=== PATIENT | female | born 1965 | race Caucasian/White ===

== ENCOUNTER 2017-04-05 06:44 | Day surgery (SDC) | payer BC ==
[~2017-04-05] VITALS: Ht 160 cm; Wt 61.4 kg
[2017-04-05] VITALS (8 sets, daily range): BP systolic 128–145; BP diastolic 77–89; PULSE 65–95; RESP 20; TEMP 98–98.2; O2SAT 91–98
[2017-04-05] MEDS ORDERED: IOHEXOL 350 MG/ML 50 ML BTL (for RAD DIAG) OTHER ONE (06:45)
[2017-04-05] MEDS ORDERED: CIPR-9 PO (07:19)
[2017-04-05] MEDS ORDERED: ALEV220T14 PO (07:19)
[2017-04-05] MEDS ORDERED: PERC5TAB12 PO (07:19)
[2017-04-05] MEDS ORDERED: DOCU1CAP66 (07:20)
[2017-04-05 07:38] LABS: AUTOMATED NEUTROPHIL # 4.4 TH/MM3 (1.8-7.7); BASOPHIL % 0.4 % (0.0-2.0); EOSINOPHIL # 0.1 TH/MM3 (0-0.4); EOSINOPHIL % 1.9 % (0.0-4.0); HEMATOCRIT 29.7 % (35.0-46.0); HEMOGLOBIN 9.3 GM/DL (11.6-15.3); LYMPH % 27.2 % (9.0-44.0); LYMPHOCYTE # 1.8 TH/MM3 (1.0-4.8); MEAN CORPUSCULAR HGB CONC 31.4 % (32.0-36.0); MEAN PLATELET VOLUME 6.5 FL (7.0-11.0); MONO % 5.3 % (0.0-8.0); MONOCYTE # 0.4 TH/MM3 (0-0.9); NEUT % 65.2 % (16.0-70.0); PLATELET COUNT 480 TH/MM3 (150-450); RED BLOOD COUNT 4.44 MIL/MM3 (4.00-5.30); RED CELL DISTRIBUTION WIDTH 18.9 % (11.6-17.2); WHITE BLOOD COUNT 6.8 TH/MM3 (4.0-11.0)
[2017-04-05 07:52] LABS: CALCIUM 8.9 MG/DL (8.5-10.1); CREATININE 0.8 MG/DL (0.50-1.00); INTERNATIONAL NORMALIZED RATIO 1.1 RATIO; PROTHROMBIN TIME - PATIENT 10.7 SEC (9.8-11.6)
[2017-04-05] MEDS ORDERED: SODIUM CHLORIDE 0.9% 1000 ML IV SCH (08:00)
[2017-04-05] MEDS ORDERED: LEVOFLOXACIN 500 MG PREMIX 100 ML - nephrostomy tube insertion or exchange IV SCH (08:00)
[2017-04-05] MEDS ORDERED: MIDAZOLAM HCL 2 MG/2 ML VIAL ONE ×2 (09:12→09:26)
--- NOTE | 2017-04-05 09:56 | PD.RAD ---
Post Procedure Progress Note Pre Procedure Diagnosis: (1) Staghorn renal calculus (2) Pyelonephritis Post Procedure Diagnosis: (1) Staghorn renal calculus (2) Pyelonephritis Procedure Date: Apr 05, 2017 Supervising Radiologist: Reyes Warren Estimated blood loss: 2cc Anesthesia: Local, Conscious Sedation Plan of Activity Patient to Unit: ROPU Patient Condition: Fair Additional Comments: large left staghorn calculi PCN placed. Immediate return of purulent material 8F tube coiled within the renal pelvis with some difficulty as the stone fills the entire kidney Full dictated report to follow See PACS Report for procedural detail/treatment Reyes Warren MD Apr 05, 2017 09:56
--- NOTE | 2017-04-05 12:13 | RADRPT ---
EXAM DATE/TIME: 04/05/2017 08:58 [facility] COMPARISON: PERCUTANEOUS ANTEGRADE PYELO,LT, April 05, 2017, 0:00. INDICATIONS : Patient presents with kidney stones and infection in need of nephrostomy tube placement for drainage. MEDICAL HISTORY : Left flank pain Staghorn calculi SURGICAL HISTORY : Tonsillectomy ENCOUNTER: Initial ACUITY: 4 - 6 months PAIN SCORE: 7/10 LOCATION: Left flank FLUORO TIME: 11.2 minutes IMAGE SERIES: 5 SEDATION TIME: 30 minutes CONTRAST: 32 cc Omnipaque (iohexol) 350 MEDICATION(S): 1.) 2.5 mg midazolam (Versed) IV 2.) 125 mcg fentanyl (Sublimaze) IV DEVICE(S): 1.) 8 Azerbaijani 25CM EXPEL PROCEDURE : 1. fluoroscopic guided puncture of the kidney. 2. Antegrade percutaneous pyelogram. 3. Percutaneous nephrostomy placement. 4. Conscious sedation with continuous EKG and oximetry monitoring. The risks, benefits and alternatives to the procedure were explained and verbal and written consent w as obtained. The site was prepped in sterile fashion. Full sterile technique was used, including ca p, mask, sterile gloves and gown and a large sterile sheet. Hand hygiene and 2% chlorhexidine and/or betadine/alcohol prep was utilized per protocol for cutaneous antisepsis. Sterile gel and sterile probe cover were utilized for ultrasound guidance. The skin and subcutaneous tissues were infiltrate d with local anesthetic solution. With ultrasound and fluoroscopic guidance the selected kidney was evaluated. The large staghorn was e asily identifiable under fluoroscopy. The patient has a draining sinus in the right back however, the most readily accessible calyx was somewhat above this level. The sinus tract was injected. This does communicate along the inferior aspect of the kidney. A suitable site was localized. The skin was anesthetize with 10 cc 1% lidocaine. A 22 gauge needle wa s advanced through the skin down to the calyx. There was immediate return of purulent material. A 0.018 wire was advanced through the needle. This was passed down to the renal pelvis. This was exch anged for or Azerbaijani dilator and a 0.035 Glidewire. The Glidewire was advanced down the ureter into th e bladder. The tract was dilated. An 8 Azerbaijani nephrostomy tube was passed over the wire and positioned within th e renal pelvis. There was difficulty with forming the catheter as the entire collecting system and re nal pelvis is filled with staghorn calculus. Conscious sedation was performed with the prescribed dosages and duration as above in the presence of an independent trained radiology nurse to assist in the monitoring of the patient. EKG and oximetry remained stable throughout the procedure. The patient tolerated the procedure well and there were n o complications. The patient was sent to post anesthesia recovery in stable condition. CONCLUSION: 1. Uncomplicated nephrostomy tube placement as above. 2. The calyx was not accessed through the patient's draining sinus tract as the tract is considerably lower than the kidney itself. Reyes Warren MD on April 05, 2017 at 12:06 Board Certified Radiologist. This report was verified electronically.
== END 2017-04-05 14:00 | disposition home or self-care (01) ==
LOC: HROP 06:44 → HRIP 06:49 → HROP 14:00
PROVIDERS: ATTEND Urology
DX: N20.0 Calculus of kidney (principal); N12 Tubulo-interstitial nephritis, not specified as acute or chronic; R10.84 Generalized abdominal pain; Z01.818 Encounter for other preprocedural examination
CPT/HCPCS: 50432; 80048; 85025; 85610; 85730; 99152; 99153; C1729; C1769; J1956; J2250; J3010; J7030; Q9967

== ENCOUNTER 2017-04-19 09:53 | Emergency (ER) | payer BC ==
[~2017-04-19] VITALS: Ht 160 cm; Wt 61.5 kg
[~2017-04-19 09:53] MED LIST: ALEV220T14 PO; CIPR-9 PO; DOCU1CAP66; PERC5TAB12 PO
[2017-04-19 10:40] VITALS: BP 154/56; PULSE 100; RESP 20; TEMP 98.4; O2SAT 100
--- NOTE | 2017-04-19 11:35 | PD ---
HPI Chief Complaint: Pain: Acute or Chronic Time Seen by Provider: 11:06 Travel History International Travel<30 days: No Contact w/Intl Traveler<30days: No Traveled to known affect area: No History of Present Illness HPI 51 YO F presents to the ED for evaluation of 12/01 throbbing right leg pain. Onset after undergoing left PCN placement on 04/05/[address] Warren. Patient states that the pain is "in the whole leg." She denies numbness, tingling, weakness, limitations to ROM of the extremity. She has been ambulatory without a limp. She denies CP, SOB, palpitations. She states that she has been taking Percocet that was prescribed post operatively. Last dose ~4am today. She is a non-smoker. She denies history of blood clots. She states that she is almost out of Percocet and is worried about the pain in her back as well. She has follow-up with Dr. Sullivan on May 06. She drove herself to the hospital today. PFSH Past Medical History Cancer: No Diabetes: No Endocrine: No Gastrointestinal Disorders: Yes (constipation) Hepatitis: No Immune Disorder: No Kidney Stones: Yes Medical other: No Psychiatric: No Reproductive: No Immunizations Current: No Thyroid Disease: No Tetanus Vaccination: > 5 Years ?: Not Past Surgical History AICD: No Joint Replacement: No Pacemaker: No Tonsillectomy: Yes Social History Alcohol Use: No Tobacco Use: No Substance Use: No Allergies-Medications (Allergen,Severity, Reaction): Coded Allergies: No Known Allergies (Unverified , 04/19/17) Reported Meds & Prescriptions Reported Meds & Active Scripts Active Reported Stool Softener (Docusate Sodium) 100 Mg Cap Aleve Arthritis (Naproxen Sodium) 220 Mg Tab 220 Mg PO BID Percocet (Oxycodone-Acetaminophen) 5-325 mg Tab 1-2 Tab PO Q6H PRN Cipro (Ciprofloxacin HCl) 500 Mg Tab 500 Mg PO BID Review of Systems Except as stated in HPI: all other systems reviewed are Neg Physical Exam Narrative GENERAL: Well-nourished, well-developed white female in no acute distress. SKIN: Focused skin assessment warm/dry. Percutaneous nephrostomy tube in the left back, healing well without signs of infection. Clear yellow urine in the flexion bag. HEAD: Normocephalic. EYES: No scleral icterus. No injection or drainage. NECK: Supple, trachea midline. No JVD or lymphadenopathy. CARDIOVASCULAR: Regular rate and rhythm without murmurs, gallops, or rubs. RESPIRATORY: Breath sounds clear and equal bilaterally. No accessory muscle use. GASTROINTESTINAL: Abdomen soft, non-tender, nondistended. Active bowel sounds. MUSCULOSKELETAL: No cyanosis, or edema. FOCUSED RIGHT LOWER EXTREMITY EXAM: 2+ DP pulse. Mildly edematous as compared to the contralateral leg. Positive Homans sign. Positive popliteal tenderness. Positive tenderness to palpation of the posterior thigh. No ropy induration noted. Patient retains full, active, painless ROM of the hip, knee and ankle joints. Neurovascularly intact to light touch distally. Cap refill less than 2 seconds. BACK: Nontender without obvious deformity. No CVA tenderness. Data Data Last Documented VS Vital Signs Date Time Temp Pulse Resp B/P (MAP) Pulse Ox O2 Delivery O2 Flow Rate FiO2 04/19/17 10:40 98.4 100 20 154/56 (88) 100 Orders Orders Us Leg Venous Doppler (04/19/17 11:06) [facility] Medical Decision Making Medical Screen Exam Complete: Yes Emergency Medical Condition: Yes Differential Diagnosis DVT versus musculoskeletal pain versus medication refill versus other Narrative Course 51 YO F presents to the ED for evaluation of 1010 throbbing right leg pain. Onset after undergoing left PCN placement on 04/05/[address] Warren. Patient states that the pain is "in the whole leg." She has been ambulatory without a limp. She drove herself to the ED. She states that she has been taking Percocet that was prescribed post operatively. Last dose ~4am today. She is a non- smoker. She denies history of blood clots. She states that she is almost out of Percocet and is worried about the pain in her back as well. She has follow-up with Dr. Sullivan on May 06. Vitals reviewed. On exam the leg is slightly larger as compared to the contralateral leg. Positive Homans sign, tender to touch of the entire extremity without limited ROM. Palpable distal pulses. Sensation intact to light touch distally. Ultrasound reveals no evidence of DVT. On recheck the patient is lying on her right side in the stretcher. She states that she has follow-up with Dr. Sullivan on the . I'm unsure of the source of her pain, most likely musculoskeletal pain, possibly anxiety about running out of medications. In any case she is safe for discharge and follow- up with Dr. Bush or Dr. Sullivan. Diagnosis Primary Impression: Musculoskeletal pain of right lower extremity Referrals: Primary Care Physician Patient Instructions: General Instructions, Musculoskeletal Pain (ED) Additional Instructions: Rest, ice, elevate the extremity. Apply ice no longer than 10-15 minutes per hour a few times a day. 600 mg ibuprofen up to 3 times a day as needed for pain. Return to normal, gentle activity as tolerated. No running, jumping activities for the next few weeks. Follow up with Dr. Bush and Dr. Sullivan as planned. Return to the ED for any urgent or emergent medical condition. Disposition: 01 DISCHARGE HOME Condition: Stable Avani Brewer Apr 19, 2017 11:35
--- NOTE | 2017-04-19 11:59 | RADRPT ---
EXAM DATE/TIME: 04/19/2017 11:18 [facility] COMPARISON: No previous studies available for comparison. INDICATIONS : Right leg pain. MEDICAL HISTORY : Kidney stone. SURGICAL HISTORY : Tonsillectomy. ENCOUNTER: Initial ACUITY: 3 days PAIN SCORE: 7/10 LOCATION: Right leg. TECHNIQUE: Venous ultrasound of the leg was performed from the inguinal ligament to the proximal calf. Real-lan e, color Doppler and spectral tracing, compression and augmentation techniques were used. FINDINGS: There is normal compressibility of the deep venous system from the inguinal region to the proximal ca lf. No echogenic clot is seen in the lumen of the common femoral, femoral, popliteal, and posterior tibial veins. There is a normal response of the venous system to proximal and distal augmentation an d respiration. CONCLUSION: No DVT is identified within the right lower extremity. Ricardo French MD on April 19, 2017 at 11:57 Board Certified Radiologist. This report was verified electronically.
[2017-04-19 12:40] VITALS: BP 183/88
== END 2017-04-19 12:50 | disposition home or self-care (01) ==
LOC: NEPC 09:53
DX: M79.604 Pain in right leg (principal)
CPT/HCPCS: 93971; 99284

== ENCOUNTER 2017-05-06 06:46 | Inpatient (IN) | payer BC, OTHER ==
[~2017-05-06] VITALS: Ht 160 cm; Wt 61.9 kg
[~2017-05-06 06:46] MED LIST changes: -CIPR-9 PO
[2017-05-06] MEDS ORDERED: METOPROLOL TARTRATE 25 MG TAB PO PRN (07:30)
[2017-05-06] MEDS ORDERED: CHLORHEXIDINE GLUCONATE 2 % 1 PACK (2 CLOTHS) TOPICAL PRN (07:30)
[2017-05-06] MEDS ORDERED: LACTATED RINGER'S 1000 ML IV PRN (07:30)
[2017-05-06] MEDS ORDERED: POVIDONE IODINE 5% (ANTISEPSIS KIT) 4 APPLICATIONS EACH NARE PRN (07:30)
[2017-05-06] MEDS ORDERED: SODIUM CHLORID 0.9% 500 ML IV PRN (07:30)
[2017-05-06] MEDS ORDERED: GENTAMICIN INJ 300 MG in SODIUM CHLORIDE 0.9% INJ 100 ML IV SCH (08:00)
[2017-05-06] MEDS ORDERED: IOHEXOL 350 MG/ML 100 ML BTL (for RAD DIAG) IVCONTRAST ONE (10:50)
[2017-05-06] MEDS ORDERED: SODIUM CHLORIDE 0.9% FLUSH 10 ML FLUSH IV FLUSH PRN (11:15)
[2017-05-06] MEDS ORDERED: HYDROmorphone HCL PF 2 MG/ML VIAL IV PUSH PRN ×2 (11:15)
[2017-05-06] MEDS ORDERED: ONDANSETRON HCL 4 MG/2 ML VIAL IV PUSH PRN (11:15)
[2017-05-06] MEDS ORDERED: Post-op Orders (for Pharmacy) XX ONE (11:15)
[2017-05-06] MEDS ORDERED: oxyCODONE/ACETAMINOPHEN 5 MG/325 MG TAB PO PRN (11:15)
[2017-05-06] MEDS ORDERED: *MEPERIDINE 25 MG INJ VIAL PERIprocedural Use ONLY ONE (11:29)
[2017-05-06] MEDS ORDERED: *morphine SULFATE 4 MG/ML PERIprocedure ONLY ONE ×2 (11:29→12:02)
[2017-05-06] MEDS: SODIUM CHLOR 0.9% 1000 ML INJ 1,000 ML IV SCH ×2 (11:30→21:03)
[2017-05-06] MEDS ORDERED: ROCURONIUM INJ 50 MG/5 ML SYRINGE IV PUSH ONE (12:00)
[2017-05-06] MEDS ORDERED: GENTAMICIN INJ 100 MG in SODIUM CHLORIDE 0.9% INJ 100 ML IV SCH (12:00)
[2017-05-06] MEDS ORDERED: ONDANSETRON HCL 4 MG/2 ML VIAL IV ONE (12:00)
[2017-05-06] MEDS ORDERED: NEOSTIGMINE 5 MG/5 ML SYRINGE IV PUSH ONE (12:00)
[2017-05-06] MEDS ORDERED: PROPOFOL 200 MG/20 ML AMP IV ONE (12:00)
[2017-05-06] MEDS ORDERED: DEXAMETHASONE SOD PHOS 4 MG/ML VIAL IV ONE (12:00)
[2017-05-06] MEDS ORDERED: LIDOCAINE HCL 1% PF 5 ML SYRINGE OTHER ONE (12:00)
[2017-05-06] MEDS ORDERED: GLYCOPYRROLATE 1 MG/5 ML SYRINGE IV PUSH ONE (12:00)
--- NOTE | 2017-05-06 12:03 | MP ---
cc: Mckay Sullivan MD DATE OF OPERATION: 05/06/2017 PREOPERATIVE DIAGNOSIS: Nephrolithiasis. POSTOPERATIVE DIAGNOSIS: Nephrolithiasis. SURGEON: Mckay Sullivan MD PROCEDURE PERFORMED: Left percutaneous nephrolithotripsy. PERTINENT FINDINGS: 1. Large stone burden noted in the left kidney encompassing upper, mid and lower poles with a complete staghorn calculus over 6 cm in total size. 2. Adequate fragmentation of the mid and lower pole stones. The upper pole stones were difficult to reach and unable to be completely fragmented. 3. Placement of a 6 x 24 double J ureteral stent at the end of the procedure. 4. Investigation of the fistulous tract identified connection with the lower pole ernie. Of note, this lower pole ernie had a very tight infundibulum, which was opened up during the procedure with significant amount of purulent material expressed and removed with all stones in this lower pole segment to be removed. 5. There was purulent material noted in several portions of the kidney where stone was identified and removed. HISTORY OF PRESENT ILLNESS: Hannah Troy is a 51-year-old female who was found to have a large left staghorn calculus. She has a draining sinus tract just inferior to the left kidney. A percutaneous nephrostomy tube was placed, which also investigated this draining tract, which revealed a small connection between the lower pole kidney, which is filled with stones. Her stone burden involved the upper, mid and lower pole stones with complete staghorn, over 6 cm of stones overall. Patient now presents for definitive treatment with PCNL on the left. PROCEDURE IN DETAIL: After proper informed consent was obtained, the patient was brought to the operating room and laid supine on the table. Bilateral lower extremity SCDs were then placed. Patient was then placed under general anesthesia. The patient then had a 20 Italian Mcbride catheter inserted. The patient was then placed in the prone position, ensuring all pressure points were padded properly and comfortable setting. At this point, the patient was prepped and draped in standard surgical fashion after proper time was completed. The left nephrostomy tube was identified. Then contrast was administered, which identified good placement of the nephrostomy tube. A Sensor wire was passed through the tube and advanced into the ureter down into the bladder. At this point, the nephrostomy tube was removed and incision was made in the skin about 1 fingerbreadth wide. At this point, dual-lumen catheter was inserted, and a super stiff wire was inserted along the lumen. The Sensor wire was then removed, and a second super stiff wire was placed as a safety. At this point, the dual lumen was removed, and the balloon catheter was then inserted to dilate the tract to 30 Italian. The balloon was inserted and dilated adequate, at which point, the sheath was passed over the balloon into the left kidney with proper access. At this point, the balloon was taken down, and the nephroscope was inserted through the sheath, and upon entering the kidney, visualization of the large renal pelvis stone was identified. Using the CyberWand, the stone was fragmented into multiple pieces and removed via ultrasonic lithotripsy and suctioned. After removal of all stones in the renal pelvis, investigation of the upper pole stones was attempted. This proved to be very difficult. There was some purulent material expressed from both stones. There was access to an upper pole ernie and all these stones were removed; however, the superior most upper pole ernie was unable to be reached. Following this, attention was then turned to the lower pole stone. A very tight infundibulum was identified and this was dilated passively with the nephroscope and the CyberWand. Upon dilation, significant amount of purulent material was expressed from this lower pole ernie. After all purulence was removed, the scope was advanced in the lower pole ernie with significant stone burden identified, and these were all removed using the CyberWand. After adequate fragmentation and removal of all stones, the kidney was investigated with a flexible cystoscope. No other obvious stone burden was identified. Fluoroscopy did note there were some stones remaining in the upper pole. No other stones in the renal pelvis or lower pole. At this point, given the fistulous tract connection of this lower pole ernie, it was decided to leave a stent in place. A 6 x 24 double ureteral stent was then successfully placed in antegrade approach with good curl in the renal pelvis as well as in the bladder. At this point, a 20 Italian Councill catheter was passed into the kidney, and the balloon was inflated to about 3 or 4 mL. Contrast was then administered, which did not identify any obvious extravasation; however, there was a fistulous tract noted in the lower pole. At this point, this tract was identified in the skin level and injection of this location was completed, which identified this very thin fistulous tract to the lower pole ernie of the kidney. At this point, the nephrostomy tube was secured to the skin with a stitch. Dressings were applied. The patient was then returned to the supine position, awoke from anesthesia, and taken to the PACU in a good and stable condition. The patient tolerated the procedure well and with no complications. DISPOSITION: The patient will be admitted for overnight observation. We will obtain a CT scan to identify any further stone burden. Plan on removing nephrostomy tube if the patient is doing well tomorrow and leaving the indwelling ureteral stent in place with plans to remove it in the future. There is hope with adequate drainage of this kidney and removing all these stones that this fistulous tract will eventually close on its own. MD EFRAIN Guillen/MOLLY , 11:20 AM , 12:01 PM LYLE
--- NOTE | 2017-05-06 12:25 | RADRPT ---
EXAM DATE/TIME: 05/06/2017 09:46 [facility] COMPARISON: NEPHROSTOMY, LEFT, April 05, 2017, 8:58. INDICATIONS : Left side percutaneous nephro lithotripsy. MEDICAL HISTORY : Kidney stones on the left side. SURGICAL HISTORY : Tonsillectomy. ENCOUNTER: Initial ACUITY: 1 day PAIN SCORE: Non-responsive. LOCATION: Left flank FINDINGS: Multiple fluoroscopic intraprocedural images are provided. Images demonstrate guidewires extending to the bladder with lithotripsy followed by placement of ureteral stent. Contrast does extend through p atient's known lower calyceal draining sinus tract. CONCLUSION: 1. Intraprocedural fluoroscopy images of left sided percutaneous nephrolithotripsy, as above. Chiki Kaur MD on May 06, 2017 at 12:20 Board Certified Radiologist. This report was verified electronically.
--- NOTE | 2017-05-06 14:07 | EKG ---
Date Performed: 05/06/2017 Time Performed: 08:24:43 PTAGE: 51 years EKG: Sinus rhythm NORMAL ECG Since the PREVIOUS TRACING , no significant change noted PREVIOUS TRACIN01/08/1994 04.10 DOCTOR: Shelly Arias Interpretating Date/Time 05/06/2017 13:57:41
[2017-05-06 14:57] VITALS: PULSE 72
[2017-05-06 16:00] VITALS: BP 106/60; PULSE 99; RESP 19; TEMP 97.7; O2SAT 99
[2017-05-06 16:09] VITALS: PULSE 72
[2017-05-06 18:16] VITALS: PULSE 72
[2017-05-06] MEDS: oxyCODONE/ACETAMINOPHEN 5 MG/325 MG TAB PO PRN (18:36)
[2017-05-06 20:00] VITALS: BP 107/56; PULSE 120; RESP 18; TEMP 99.9; O2SAT 97
[2017-05-06] MEDS: SODIUM CHLORIDE 0.9% FLUSH 10 ML FLUSH IV FLUSH SCH (20:56)
[2017-05-07] MEDS: oxyCODONE/ACETAMINOPHEN 5 MG/325 MG TAB PO PRN ×6 (00:02→22:49)
[2017-05-07 06:14] LABS: HEMATOCRIT 25.1 % (35.0-46.0); HEMOGLOBIN 8.3 GM/DL (11.6-15.3); MEAN CELL VOLUME 69.7 FL (80.0-100.0); MEAN CORPUSCULAR HEMOGLOBIN 22.9 PG (27.0-34.0); MEAN CORPUSCULAR HGB CONC 32.9 % (32.0-36.0); MEAN PLATELET VOLUME 7.1 FL (7.0-11.0); PLATELET COUNT 280 TH/MM3 (150-450); RED CELL DISTRIBUTION WIDTH 21.9 % (11.6-17.2); WHITE BLOOD COUNT 5.2 TH/MM3 (4.0-11.0)
[2017-05-07 06:40] LABS: BICARBONATE 27.2 MEQ/L (21.0-32.0); CALCIUM 8.3 MG/DL (8.5-10.1); CREATININE 0.93 MG/DL (0.50-1.00)
[2017-05-07 08:00] VITALS: BP 136/69; PULSE 106; RESP 19; TEMP 100.5; O2SAT 98
[2017-05-07] MEDS: SODIUM CHLOR 0.9% 1000 ML INJ 1,000 ML IV SCH ×2 (08:03→17:06)
[2017-05-07] MEDS: SODIUM CHLORIDE 0.9% FLUSH 10 ML FLUSH IV FLUSH SCH ×2 (08:04→19:56)
[2017-05-07] MEDS ORDERED: GENTAMICIN INJ 100 MG in SODIUM CHLORIDE 0.9% INJ 100 ML IV SCH (10:00)
--- NOTE | 2017-05-07 10:28 | RADRPT ---
EXAM DATE/TIME: 05/07/2017 09:57 [facility] COMPARISON: No previous studies available for comparison. INDICATIONS : Abdominal pain. ORAL CONTRAST: No oral contrast ingested. RADIATION DOSE: 6.88 CTDIvol (mGy) MEDICAL HISTORY : Renal calculi. SURGICAL HISTORY : Ureteral stent ENCOUNTER: Initial ACUITY: 1 day PAIN SCALE: 5/10 LOCATION: Bilateral lower quadrant TECHNIQUE: Volumetric scanning of the abdomen and pelvis was performed. Using automated exposure control and ad justment of the mA and/or kV according to patient size, radiation dose was kept as low as reasonably achievable to obtain optimal diagnostic quality images. DICOM format image data is available electro nically for review and comparison. FINDINGS: Lung bases demonstrate subsegmental basilar dependent airspace, probably atelectasis. No acute findings in the liver, spleen, adrenals or pancreas. There is a left sided nephrostomy tube ending in the left renal pelvis is a left-sided ureteral stent extending into the bladder. There is air in the left renal collecting system and a partial staghorn calculus occupying the upper pole of the left kidney. There are several small nonobstructing calculi in the lower pole of the left kidney ranging in size from 1-3 mm. No right-sided renal calculi identified. Numerous calcified gallstones in the gallbladder without significant ductal dilatation. There is moderate constipation. Mcbride catheter present in decompressed bladder. No adenopathy. CONCLUSION: 1. Left-sided nephrostomy tube and left ureteral stent. Air in left renal collecting system. There is left perinephric stranding. Partial staghorn calculus upper pole left kidney and smaller nonobstruct ing calculi lower pole left kidney. Minimal dilatation of the left renal collecting system. Numerous calcified gallstones without ductal dilatation. Moderate constipation. Subsegmental airspace disease at the lung bases. Hola Hinojosa MD on May 07, 2017 at 10:21 Board Certified Radiologist. This report was verified electronically.
[2017-05-07 12:00] VITALS: BP_SYST 103; BP_SYST 99; BP_DIAS 55; PULSE 105; PULSE 68; RESP 19; RESP 20; TEMP 98.7; O2SAT 96; O2SAT 99
--- NOTE | 2017-05-07 15:07 | HHI.PR ---
Subjective Patient symptoms today 51 y.o F POD # 1 s/p left PCNL, has Nephrostomy and left stent. NAD, spiked fever at AM 100.5, now its better but still low grade 99.0. no N/V, still c/o left flank pain, meds are helping On CT scan Stent and PCN on a left are in good position, she still has LUP stones. Labs are stable Objective Vital Signs Vital Signs Date Time Temp Pulse Resp B/P (MAP) Pulse Ox O2 Delivery O2 Flow Rate FiO2 05/07/17 12:00 98.7 105 19 99/55 (70) 99 05/07/17 09:03 16 05/07/17 08:00 100.5 106 19 136/69 (91) 98 05/06/17 20:00 99.9 120 18 107/56 (73) 97 05/06/17 18:16 72 05/06/17 16:09 72 05/06/17 16:00 97.7 99 19 106/60 (75) 99 Intake & Output 05/07/17 05/07/17 07:00 19:00 Intake Total 1720 ml 120 ml Output Total 1380 ml Balance 340 ml 120 ml Intake Oral 120 ml IV Total 1720 ml Output Urine Total 1350 ml Drainage Total 30 ml Result Diagram: 05/07/17 0530 05/07/17 0530 Imaging Last 24 hours Impressions Abdomen/Pelvis CT 05/07/17 0800 Signed Impressions: Service Date/Time: Sunday, May 07, 2017 09:57 - CONCLUSION: 1. Left-sided nephrostomy tube and left ureteral stent. Air in left renal collecting system. There is left perinephric stranding. Partial staghorn calculus upper pole left kidney and smaller nonobstructing calculi lower pole left kidney. Minimal dilatation of the left renal collecting system. Numerous calcified gallstones without ductal dilatation. Moderate constipation. Subsegmental airspace disease at the lung bases. Hola Hinojosa MD Objective Remarks NAD RRR Clear breath sounds Lt PCN is in place, urine is red, 100cc in the bag Medications and IVs Current Medications Medications (Trade) Dose Ordered Sig/Miguel Route Start Time Stop Time Status Last Admin Gentamicin Sulfate 300 mg/ Sodium Chloride 107.5 ml @ 200 mls/hr SERVICE DESK MANAGER IV 05/06/17 08:00 05/09/17 07:59 05/06/17 09:48 Lactated Ringer's 1,000 ml @ 30 mls/hr Q24H PRN IV 05/06/17 07:30 05/09/17 07:29 05/06/17 07:50 Sodium Chloride 500 ml @ 30 mls/hr [id number] PRN IV 05/06/17 07:30 05/09/17 07:29 (Lopressor) 25 mg SERVICE DESK MANAGER PRN PO 05/06/17 07:30 05/09/17 07:29 (Betadine 5% Antisepsis Kit) 1 applic SERVICE DESK MANAGER PRN EACH NARE 05/06/17 07:30 05/09/17 07:29 05/06/17 07:51 (Chlorhexidine 2% Cloth) 3 pack SERVICE DESK MANAGER PRN TOPICAL 05/06/17 07:30 05/09/17 07:29 05/06/17 07:30 Sodium Chloride 1,000 ml @ 100 mls/hr Q10H IV 05/06/17 11:06 05/07/17 08:03 (NS Flush) 2 ml UNSCH PRN IV FLUSH 05/06/17 11:15 (NS Flush) 2 ml BID IV FLUSH 05/06/17 21:00 05/07/17 08:04 (Percocet 5-325 Mg) 1 tab Q4H PRN PO 05/06/17 11:15 (Percocet 5-325 Mg) 2 tab Q4H PRN PO 05/06/17 11:15 05/07/17 13:08 (Dilaudid Pf Inj) 1 mg Q2H PRN IV PUSH 05/06/17 11:15 (Dilaudid Pf Inj) 2 mg Q2H PRN IV PUSH 05/06/17 11:15 (Zofran Inj) 4 mg Q6H PRN IV PUSH 05/06/17 11:15 Assessment and Plan Assessment and Plan Continue observation Labs at AM Ambulation and regular diet Use IS Lt PCN removed, dressing applied Change dressing prn D/c mariee at AM tomorrow If stable overnight will be d/c tomorrow Chava Schwarz May 07, 2017 15:07
[2017-05-07 16:00] VITALS: BP 118/65; PULSE 97; RESP 20; TEMP 97; O2SAT 98
[2017-05-07] MEDS: DOCUSATE SODIUM 100 MG CAP PO SCH (17:09)
[2017-05-07 20:00] VITALS: BP 128/63; PULSE 103; RESP 21; TEMP 98.9; O2SAT 97
[2017-05-08 00:35] VITALS: BP 107/57; PULSE 109; RESP 21; TEMP 99.9; O2SAT 95
[2017-05-08] MEDS: SODIUM CHLOR 0.9% 1000 ML INJ 1,000 ML IV SCH (03:06)
[2017-05-08] MEDS: oxyCODONE/ACETAMINOPHEN 5 MG/325 MG TAB PO PRN ×2 (04:42→11:22)
[2017-05-08 06:24] LABS: AUTOMATED NEUTROPHIL # 3.2 TH/MM3 (1.8-7.7); BASOPHIL % 0.4 % (0.0-2.0); EOSINOPHIL # 0.1 TH/MM3 (0-0.4); EOSINOPHIL % 1.9 % (0.0-4.0); HEMATOCRIT 26.1 % (35.0-46.0); HEMOGLOBIN 8.3 GM/DL (11.6-15.3); LYMPH % 28.5 % (9.0-44.0); LYMPHOCYTE # 1.4 TH/MM3 (1.0-4.8); MEAN CELL VOLUME 70.9 FL (80.0-100.0); MEAN CORPUSCULAR HEMOGLOBIN 22.7 PG (27.0-34.0); MEAN CORPUSCULAR HGB CONC 31.9 % (32.0-36.0); MEAN PLATELET VOLUME 7.6 FL (7.0-11.0); MONO % 6.5 % (0.0-8.0); MONOCYTE # 0.3 TH/MM3 (0-0.9); NEUT % 62.7 % (16.0-70.0); PLATELET COUNT 264 TH/MM3 (150-450); RED BLOOD COUNT 3.68 MIL/MM3 (4.00-5.30); RED CELL DISTRIBUTION WIDTH 22.4 % (11.6-17.2)
[2017-05-08 06:41] LABS: BICARBONATE 28.3 MEQ/L (21.0-32.0); CALCIUM 8.4 MG/DL (8.5-10.1); CREATININE 0.75 MG/DL (0.50-1.00)
[2017-05-08 08:00] VITALS: BP 109/56; PULSE 106; RESP 17; TEMP 98.9; O2SAT 99
[2017-05-08] MEDS: SODIUM CHLORIDE 0.9% FLUSH 10 ML FLUSH IV FLUSH SCH (08:29)
[2017-05-08] MEDS: DOCUSATE SODIUM 100 MG CAP PO SCH (08:30)
[2017-05-08] MEDS ORDERED: CIPR-9 PO (11:22)
[2017-05-08] MEDS ORDERED: PERC5TAB12 PO (11:22)
--- NOTE | 2017-05-08 11:26 | HHI.DS ---
Discharge Summary Admission Date May 06, 2017 at 11:37 Discharge Date: May 08, 2017 Admitting Diagnosis Nephrolithiasis (1) Staghorn renal calculus Diagnosis: Principal ICD Codes: N20.0 - Calculus of kidney Procedures Left PCNL CBC/BMP: 05/08/17 0400 05/08/17 0400 Significant Findings Laboratory Tests Test 05/07/17 05:30 05/08/17 04:00 Red Blood Count 3.60 MIL/MM3 (4.00-5.30) 3.68 MIL/MM3 (4.00-5.30) Hemoglobin 8.3 GM/DL (11.6-15.3) 8.3 GM/DL (11.6-15.3) Hematocrit 25.1 % (35.0-46.0) 26.1 % (35.0-46.0) Mean Corpuscular Volume 69.7 FL (80.0-100.0) 70.9 FL (80.0-100.0) Mean Corpuscular Hemoglobin 22.9 PG (27.0-34.0) 22.7 PG (27.0-34.0) Red Cell Distribution Width 21.9 % (11.6-17.2) 22.4 % (11.6-17.2) Random Glucose 136 MG/DL (74-106) 107 MG/DL (74-106) Calcium Level 8.3 MG/DL (8.5-10.1) 8.4 MG/DL (8.5-10.1) Estimat Glomerular Filtration Rate 63 ML/MIN (>89) 81 ML/MIN (>89) Mean Corpuscular Hemoglobin Concent 31.9 % (32.0-36.0) Hospital Course Patient underwent successful left PCNL for large left staghorn calculus on 05/06. Patient did well postoperatively. CT scan identified stones remaining in the upper pole calyx with clearance of all other stones. Therefore her nephrostomy tube was removed. She does have an indwelling left ureteral stent in place. She was tolerating diet with good pain control. Discharged in good and stable condition on 05/08/17. Follow-up with Urology in clinic in 1-2 weeks Pt Condition on Discharge: Good Discharge Disposition: Discharge Home Discharge Instructions DIET: Follow Instructions for: As Tolerated, No Restrictions Activities you can perform: Regular-No Restrictions, Shower Only-No Bath New Medications: Ciprofloxacin (Cipro) 500 Mg Tab 500 MG PO BID for Infection for 5 Days, #10 TAB 0 Refills Changed Medications: Oxycodone-Acetaminophen (Percocet) 5-325 mg Tab 1-2 TAB PO Q6H PRN for PAIN for 14 Days, #60 TAB 0 Refills (Changed from: 1 TAB) Continued Medications: Docusate Sodium (Stool Softener) 100 Mg Cap CAP Naproxen Sodium (Aleve Arthritis) 220 Mg Tab 220 MG PO BID, TAB Mcaky Sullivan MD May 08, 2017 11:26
== END 2017-05-08 12:25 | disposition home or self-care (01) | DRG 661 ==
LOC: HSDC 06:46 → HSDI 11:37 → N07A 13:45
PROVIDERS: ADMIT Urology; ATTEND Urology
PROC: 0T773DZ Dilation of Left Ureter with Intraluminal Device, Percutaneous Approach (ICD-10-PCS; 2017-05-06)
PROC: 0TF43ZZ Fragmentation in Left Kidney Pelvis, Percutaneous Approach (ICD-10-PCS; principal; 2017-05-06 08:51)
DX: N20.0 Calculus of kidney (principal); N28.89 Other specified disorders of kidney and ureter
CPT/HCPCS: 74018; 74176; 76000; 80048; 82365; 82370; 85025; 85027; 88300; 93005; C1726; C1769; C2617; J1100; J1580; J2175; J2270; J2405; J2710; J3010; J7030; J7120; Q9967